=== PATIENT | male | born 1995 | race Caucasian/White ===

== ENCOUNTER 2020-03-14 16:06 | Emergency (ER) | payer OTHER ==
[~2020-03-14] VITALS: Ht 182.9 cm; Wt 83.9 kg
[2020-03-14] MEDS ORDERED: PRED20 PO (16:37)
[2020-03-14] MEDS ORDERED: BENADRYL25 MG PO (16:38)
== END 2020-03-14 16:57 | disposition home or self-care (01) ==
LOC: ER 16:06
DX: T63.441A Toxic effect of venom of bees, accidental (unintentional), initial encounter (principal); R22.32 Localized swelling, mass and lump, left upper limb; L29.9 Pruritus, unspecified
CPT/HCPCS: 99283; J7512